=== PATIENT | female | born 1985 | race African-American/Black ===

== ENCOUNTER 2019-04-30 16:30 | Observation (INO) ==
[2019-04-30] MEDS ORDERED: ONDANSETRON 4 MG/2 ML VIAL IV PRN (16:59)
[2019-04-30] MEDS ORDERED: ACETAMINOPHEN 325 MG TABLET PO PRN ×2 (16:59→17:44)
[2019-04-30] MEDS ORDERED: ZALEPLON 5 MG CAPSULE PO PRN (16:59)
[2019-04-30 17:26] LABS: Eosinophils # 0.4 10*3/uL (0.0-0.87); Eosinophils % 3.2 % (0.00-10.9); Immature Granulocytes % 0.3 %; Immature Granulocytes Absolute 0.03 #; Red Blood Count 3.67 MC/CUMM (3.8-5.5)
[2019-04-30] MEDS ORDERED: SODIUM CHLORIDE 0.9% 1,000 ML IV PRN (17:44)
[2019-04-30] MEDS ORDERED: ALBUTEROL/IPRATROPIUM 3 ML NEB RESP TX PRN (17:47)
[2019-04-30 17:48] LABS: Basophils % 0.3 % (0.0-0.8); Hematocrit 24.3 VOL% (35.7-47.0); Lymphocytes # 3.3 10*3/uL (1.4-4.0); Lymphocytes % 30.6 % (21.3-54.2); Mean Corpuscular HGB Conc 25.9 GM/DL (32-36); Mean Corpuscular Volume 66.2 FL (87-102); Mean Platelet Volume 10.5 FL (9.6-12.0); Monocytes % 5.3 % (1.7-12.7); Neutrophils % 60.3 % (38.7-73.9); Platelet Count 380 T/CUMM (130-400); Red Cell Distribution Width 20.2 % (9.3-17.3); White Blood Count 10.8 T/CUMM (4-12)
[2019-04-30 17:51] LABS: % Iron Saturation 3.5 % (18-50); Ferritin 8.8 ng/ml (8-252); Hemoglobin 6.3 GM/DL (12.0-16.0)
[2019-04-30 17:58] LABS: Folate 12.7 NG/ML (5.4-24.0)
[2019-04-30 18:00] LABS: Hypochromasia 1+
[2019-04-30] MEDS ORDERED: FUROSEMIDE 20 MG/2 ML VIAL IV ONE (18:00)
[2019-04-30] MEDS ORDERED: diphenhydrAMINE CAP 25 MG CAPSULE PO ONE (18:00)
[2019-04-30 18:01] LABS: Microcytosis 1+; Ovalocytes Few; Platelet Estimate Normal; Target Cells Few
[2019-04-30] MEDS ORDERED: diphenhydrAMINE CAP 25 MG CAPSULE PO PRN (18:03)
[2019-04-30] MEDS ORDERED: CALCIUM CARBONATE CHEW 500 MG TABLET PO PRN (18:03)
[2019-04-30] MEDS ORDERED: BISACODYL 5 MG TABLET PO PRN (18:03)
[2019-04-30] MEDS ORDERED: ALUMINUM/MAGNES/SIMETH MAX STR 30 ML UDCUP PO PRN (18:03)
[2019-04-30] MEDS ORDERED: DOCUSATE SODIUM 100 MG CAPSULE PO PRN (18:03)
[2019-04-30] MEDS ORDERED: LACTULOSE 20 GM/30 ML UDCUP PO PRN (18:03)
[2019-04-30] MEDS ORDERED: NICOTINE 21 MG/24 HR PATCH TRANSDERM PRN (18:03)
[2019-04-30] MEDS ORDERED: hydrALAZINE 20 MG/1 ML VIAL IV PRN (18:03)
[2019-04-30] MEDS ORDERED: BACLOFEN 10 MG TABLET PO SCH (21:00)
[2019-04-30] MEDS: PREGABALIN 75 MG CAPSULE PO SCH (23:31)
[2019-04-30] MEDS: FERROUS SULFATE 325 MG TABLET PO SCH (23:31)
[2019-05-01 06:13] LABS: Basophils % 0.2 % (0.0-0.8); Eosinophils # 0.3 10*3/uL (0.0-0.87); Eosinophils % 3.7 % (0.00-10.9); Hematocrit 30.8 VOL% (35.7-47.0); Immature Granulocytes % 0.2 %; Immature Granulocytes Absolute 0.02 #; Lymphocytes # 2.6 10*3/uL (1.4-4.0); Lymphocytes % 30.3 % (21.3-54.2); Mean Corpuscular HGB Conc 29.2 GM/DL (32-36); Mean Corpuscular Volume 71.5 FL (87-102); Mean Platelet Volume 10.2 FL (9.6-12.0); Monocytes % 6.8 % (1.7-12.7); Neutrophils % 58.8 % (38.7-73.9); Platelet Count 287 T/CUMM (130-400); Red Blood Count 4.31 MC/CUMM (3.8-5.5); Red Cell Distribution Width 26.1 % (9.3-17.3); White Blood Count 8.5 T/CUMM (4-12)
[2019-05-01 06:33] LABS: Albumin 3.1 G/DL (3.4-5.0); Bilirubin,Total 0.9 MG/DL (0.2-1.0); Calcium 8.9 MG/DL (8.5-10.1); Osmolality,Calculated 269.8 MOS/KG (273-304); Risk Ratio 3.21; Total Protein 7.6 G/DL (6.4-8.3); VLDL CHOLESTEROL 21.4 MG/DL
[2019-05-01] MEDS ORDERED: OLMESARTAN 20 MG TABLET PO SCH (09:00)
[2019-05-01] MEDS ORDERED: IRON SUCROSE 300 MG in SODIUM CHLORIDE 0.9% 100 ML IV ONE (09:00)
[2019-05-01] MEDS ORDERED: carvediloL 3.125 MG TABLET PO SCH (09:00)
[2019-05-01] MEDS ORDERED: PANTOPRAZOLE 40 MG TABLET PO SCH (09:00)
[2019-05-01] MEDS: PREGABALIN 75 MG CAPSULE PO SCH ×2 (09:34→09:35)
[2019-05-01] MEDS: FERROUS SULFATE 325 MG TABLET PO SCH (09:34)
[2019-05-01 11:55] VITALS: BP 110/85
== END 2019-05-01 13:37 | disposition home or self-care (01) ==
LOC: N.EDINP 16:30 → N.ED 16:30 → N.EDINP 18:17 → N.4E 18:30
PROVIDERS: ADMIT Internal Medicine; ATTEND Internal Medicine